=== PATIENT | female | born 1965 | race Caucasian/White ===

== ENCOUNTER 2020-07-11 08:12 | Outpatient (CLI) | payer OTHER ==
[2020-07-11 10:05] LABS: THYROID STIMULATING HORMONE 7.29 uIu/mL (0.36-3.74)
== END 2020-07-11 20:20 | disposition home or self-care (01) ==
LOC: SLB 08:12
DX: R53.83 Other fatigue (principal)
CPT/HCPCS: 36415; 84439; 84443-TC

== ENCOUNTER 2020-07-22 15:48 | Outpatient (CLI) | payer OTHER | END 2020-07-22 21:10 | disposition home or self-care (01) | LOC: SUS 15:48 | DX: E03.9 Hypothyroidism, unspecified (principal) | CPT/HCPCS: 76536-TC ==

== ENCOUNTER 2020-07-24 15:12 | Outpatient (CLI) | payer OTHER ==
[2020-07-24 16:29] LABS: FREE T4 (FREE THYROXINE) 0.9 ng/dl (0.8-1.5); THYROID STIMULATING HORMONE 5.7 uIu/mL (0.36-3.74)
== END 2020-07-24 20:36 | disposition home or self-care (01) ==
LOC: SLB 15:12
DX: E05.90 Thyrotoxicosis, unspecified without thyrotoxic crisis or storm (principal)
CPT/HCPCS: 36415; 84439; 84443-TC; 86376

== ENCOUNTER 2020-08-09 15:26 | Outpatient (CLI) | payer OTHER | END 2020-08-09 21:37 | disposition home or self-care (01) | LOC: SUS 15:26 | DX: I73.9 Peripheral vascular disease, unspecified (principal) | CPT/HCPCS: 93970 ==

== ENCOUNTER 2020-08-27 06:48 | Day surgery (SDC) | payer OTHER ==
[~2020-08-27] VITALS: Ht 170.2 cm; Wt 67.1 kg
[2020-08-27] MEDS ORDERED: SIMETHICONE 40 MG/0.6 ML ML ONE (07:36)
[2020-08-27] MEDS ORDERED: MIDAZOLAM HCL 5 MG/5 ML VIAL ONE (07:36)
[2020-08-27] MEDS ORDERED: fentaNYL CITRATE/PF 100 MCG/2 ML AMP ONE (07:36)
[2020-08-27 10:15] VITALS: BP_SYST 109
== END 2020-08-27 09:25 | disposition home or self-care (01) ==
LOC: SDS 06:48
PROVIDERS: ATTEND Internal Medicine
DX: Z12.11 Encounter for screening for malignant neoplasm of colon (principal); K64.8 Other hemorrhoids; E78.00 Pure hypercholesterolemia, unspecified; Z80.0 Family history of malignant neoplasm of digestive organs
CPT/HCPCS: 45378; 99152; G0378; J2250; J3010; J7030

== ENCOUNTER → 2020-09-27 | Outpatient (CLI) | payer OTHER | END | disposition home or self-care (01) | LOC: SRD 15:28 | DX: M77.31 Calcaneal spur, right foot (principal); M79.671 Pain in right foot; M25.571 Pain in right ankle and joints of right foot ==